=== PATIENT | female | born 1980 | race Caucasian/White ===

== ENCOUNTER → 2020-05-11 12:50 | Outpatient (CLI) | payer OTHER, SELFPAY ==
--- NOTE | ~2020-05-11 | CT_ITS ---
EXAMINATION: CT brain wo con EXAM DATE: 05/11/2020 13:03 INDICATION: Headaches, blurred vision. Tremors. TECHNIQUE: Spiral CT of the head was performed without contrast. Axial, coronal and sagittal images were reviewed. The dose-length product (DLP) for this examination was 524.62 mGy-cm. The exposure w as tailored according to patient size, and iterative reconstruction (ASIR) was used as additional dos e reduction technique. There is no prior study for comparison. FINDINGS: There is no acute intraparenchymal hemorrhage. No evidence of intraparenchymal brain mass lesion. No evidence of acute infarction. There is no mass effect or midline shift. The ventricles are normal in size. There are no extra-axial collections. There are no acute calvarial fractures. T he orbits are unremarkable. Soft tissue is unremarkable. The visualized sinuses and mastoid air [place] ls are well aerated. IMPRESSION: 1. Normal head CT examination. Reviewed, dictated and finalized at location A. ATIONS PROFESSIONAL
== END ==
PROVIDERS: PCP Physician Assistant; Visit Provider Physician Assistant
DX: R51.9 Headache, unspecified (principal); H53.9 Unspecified visual disturbance
CPT/HCPCS: 70450

== ENCOUNTER → 2021-01-23 08:46 | Outpatient (CLI) | payer OTHER, SELFPAY ==
--- NOTE | ~2021-01-23 | MMUS_ITS ---
EXAMINATION: MM diagnostic [place] BI w srikanth, US breast RT limited HISTORY: Bilateral breast tenderness palpable lump in the upper outer quadrant of the right breast TECHNIQUE: Craniocaudal, mediolateral, and mediolateral oblique 3-D tomosynthesis images of the breas ts were performed and synthetic 2-D images were generated. CAD analysis was submitted and interpreted . High resolution limited right breast ultrasound was performed. COMPARISON: None, baseline BREAST PARENCHYMAL COMPOSITION: There are scattered areas of fibroglandular density. FINDINGS: MAMMOGRAPHIC FINDINGS: There is no evidence of suspicious mass, calcification, or architectural distortion in either breast to suggest malignancy. No mammographic correlate is identified for the reported palpable abnormality of concern of the right breast. ULTRASOUND: There is no evidence of focal abnormal solid or cystic mass in the vicinity of the reported palpable abnormality of concern in the right breast. IMPRESSION: 1. No specific mammographic or sonographic correlate is identified for the reported palpable abnormal ity of concern. Further evaluation at this time should be based on clinical assessment. Continued fol low-up physical examination is recommended. 2. Recommend routine screening mammography in one year. BI-RADS Category 1: Negative Reviewed, dictated and finalized at location A. IMPRESSION: 1. No specific mammographic or sonographic correlate is identified for the repo rted palpable abnormality of concern. Further evaluation at this time should be based on clinical assessment. Continued follow-up physical examination is mary ann mmended. 2. Recommend routine screening mammography in one year. BI-RADS Category 1: Negative
== END ==
PROVIDERS: PCP Physician Assistant; Visit Provider Obstetrics & Gynecology
DX: N63.11 Unspecified lump in the right breast, upper outer quadrant (principal)
CPT/HCPCS: 76642; 77062; 77066; G0279

== ENCOUNTER 2021-03-01 17:45 | Emergency (ER) | payer OTHER, SELFPAY ==
[2021-03-01 18:00] VITALS: BP 145/90; PULSE 104; RESP 18; TEMP 37.4; O2SAT 99
--- NOTE | 2021-03-01 18:20 | ED.URI ---
HPI - URI/Sore Throat General Chief Complaint: Upper Respiratory Infection Stated Complaint: Fever,Headache,Sore Throat Time Seen by Provider: 03/01/21 18:20 Source: patient Mode of arrival: ambulatory Limitations: no limitations History of Present Illness HPI Narrative: Deena Martinez is a 40 yo female with a PMH of obesity, anxiety, who comes to [facility] for fever 100.4 and was sent home from [facility]. She is vaccinated back in June and must have both a negative Covid test as well as potentially an alternate diagnosis to be able to come back to work. She has a headache and congestion addition to the fever, chills Related Data Allergies Allergy/AdvReac Type Severity Reaction Status Date / Time No Known Drug Allergies Allergy Unknown Unknown Verified 01/11/21 14:39 Review of Systems Review of Systems: CONSTITUTIONAL: Has fever, chills, sweats. Has headache, EYES: Denies visual changes, redness, discharge. ENT: Denies rhinorrhea, has congestion, sore throat, otalgia. CARDIOVASCULAR: Denies chest pain, palpitations, edema. RESPIRATORY: Denies dyspnea, wheezing, cough GASTROINTESTINAL: Denies abdominal pain, nausea, vomiting, diarrhea. GENITOURINARY: Denies dysuria, hematuria, abnormal discharge SKIN: Denies rash or itching. NEUROLOGIC: Denies numbness, or focal weakness. PSYCHIATRIC: Denies anxiety or depression. PMFSH Past Medical History Medical History (Updated 03/01/21 @ 18:44 by Shama Penn CNP) Chronic low back pain Depression Insomnia Obese Social History Social History Smoking packs per day: 2 Smoking cigarettes per day: 40.0 Years smoked: 10 Smoking pack-years: 20.00 Tobacco type: cigarettes Second hand tobacco smoke exposure: Yes Smoking end date: 08/19/11 Alcohol intake: current Alcohol use details: seldom; socially Substance use: never Substance use type: does not use Comments At time of signature, I agree with nursing past medical, surgical, social and family history. There is no relevant family history pertinent to the presenting complaint. Exam Narrative: GENERAL: This is a well-nourished, well-developed patient, in mild distress. HEAD: normocephalic, atraumatic. EYES: Sclera clear/white. Vision is grossly intact. EARS: External ears normal, Hearing grossly intact. NOSE: External nose normal with nasal discharge, nares without redness, no rhinorrhea. THROAT: Mucous membranes moist, posterior pharynx mild erythema NECK: Neck supple, non-tender CARDIOVASCULAR: Tachycardic rate and rhythm without murmurs, gallops, or rubs. RESPIRATORY: Clear to auscultation. Breath sounds equal bilaterally. No wheezes, rales, or rhonchi. GASTROINTESTINAL: Abdomen soft, non-tender, SKIN: warm, intact with no suspicious lesions or rash, good texture and turgor. NEURO: awake, alert, and oriented to person, place and time. There were no obvious focal neurologic abnormalities. Steady gait EXTREMITIES: Normal range of motion. BACK: Nontender without deformity Course Course Emergency Course: Nursing medicine comes to [facility] for evaluation of upper respiratory symptoms and fever Strep test-negative Flu test- negative Covid PCR's sent as patient has only had symptoms for 24 hours, developed fever work today Treated with Zyrtec or Claritin D, prednisone and Tessaln if needed, ibuprofen and Tylenol for pain/fevrer, If develop cough, monitor O2 levels Vital Signs Vital signs: Vital Signs Temperature 99.4 F 03/01/21 18:00 Pulse Rate 104 H 03/01/21 18:00 Respiratory Rate 18 03/01/21 18:00 Blood Pressure 145/90 H 03/01/21 18:00 Pulse Oximetry 99 03/01/21 18:00 Temperature 99.4 F 03/01/21 18:00 Pulse Rate 104 H 03/01/21 18:00 Respiratory Rate 18 03/01/21 18:00 Blood Pressure 145/90 H 03/01/21 18:00 Pulse Oximetry 99 03/01/21 18:00 MDM - URI/Sore Throat Differential Diagnosis D
[2021-03-02 18:03] LABS: SARS-CoV-2 RNA PCR Positive
== END 2021-03-01 18:53 | disposition home or self-care (01) ==
PROVIDERS: Emergency Provider Nurse Practitioner; PCP Physician Assistant
DX: U07.1 COVID-19 (principal); F17.210 Nicotine dependence, cigarettes, uncomplicated; E66.9 Obesity, unspecified
CPT/HCPCS: 87081; 87804; 87880; 99213; C9803; G0463; U0003; U0005

== ENCOUNTER 2021-03-09 19:55 | Emergency (ER) | payer OTHER, SELFPAY ==
[2021-03-09 20:23] VITALS: BP 148/83; PULSE 85; RESP 18; TEMP 36.3; O2SAT 99
[2021-03-09 20:47] LABS: Basophils Percent Auto 0.2 % (0.2-1.2); Eosinophils Absolute Auto 0.1 K/mm3 (0-0.3); Eosinophils Percent Auto 0.9 % (0-4.4); Hematocrit 42.3 % (37.0-47.0); Hemoglobin 14.4 g/dL (12.0-15.0); Immature Granulocyte Absolute 0.09 K/mm3 (0.00-0.031); Immature Granulocyte Percent A 0.9 % (0-0.5); Lymphocytes Absolute Auto 1.67 K/mm3 (0.9-3.2); Lymphocytes Percent Auto 16.6 % (18.3-44.2); Mean Corpuscular Hemoglobin 30.3 pg (26-34); Mean Corpuscular Volume 88.9 fl (80-100); Mean Platelet Volume 8.9 fl (7.4-10.4); Monocytes Absolute Auto 0.7 K/mm3 (0.1-0.6); Monocytes Percent Auto 6.8 % (2.6-8.5); Neutrophils Absolute Auto 7.5 K/mm3 (1.3-6.7); Neutrophils Percent Auto 74.6 % (45.5-73.1); Platelet Count Result 271 k/mm3 (150-375); Red Blood Count 4.76 M/mm3 (4.2-5.4); Red Cell Distribution Width 11.8 % (11.5-14.5); White Blood Count 10.1 K/mm3 (4.5-10.0)
[2021-03-09 20:54] LABS: Add Urine Microscopic? YES; Appearance Urine Clear (Clear); Bacteria Urine Trace /hpf; Bilirubin Urine Negative (Negative); Blood Urine Negative (Negative); Color Urine Yellow (Yellow); Glucose Urine UA Negative (Negative); Ketones Urine Negative (Negative); Leukocyte Esterase Ur 2+ LEU/UL (Negative); Nitrate Urine Negative (Negative); Protein Urine Negative (Negative); Squamous Epithelial Cell Urine Occasional /hpf (Few); Urobilinogen Urine Negative mg/dL (<2.0)
[2021-03-09 21:33] LABS: Alanine Aminotransferase 69 U/L (4-35); Albumin Level 4.6 g/dL (3.5-5.1); Alkaline Phosphatase 86 U/L (38-126); Anion Gap 13 mmol/L (8-16); Aspartate Amino Transferase 33 U/L (14-36); Bilirubin,Total 0.4 mg/dL (0.2-1.3); Blood Urea Nitrogen 7 mg/dL (7-17); Calcium 9.7 mg/dL (8.4-10.2); Carbon Dioxide 24 mmol/L (22-30); Chloride 107 mmol/L (98-107); Estimated CRCL calculation 105 ml/min; Estimated Glomerular Filt Rate > 60; Glucose 104 mg/dL (65-110); Lipase 218 U/L (23-300); Potassium 4.1 mmol/L (3.4-5.0); Sodium 144 mmol/L (137-145)
--- NOTE | 2021-03-09 22:39 | ED.GENADULT ---
HPI - General Adult General Chief complaint: Nausea/Vomiting/Diarrhea Stated complaint: Unable to keep anything down, covid + Time Seen by Provider: 03/09/21 20:48 Source: patient History of Present Illness HPI narrative: 41-year-old female diagnosed with Covid 8 days ago complaining of 1 day history of nausea vomiting and diarrhea unable to keep anything down. Abdominal pain with vomiting only. No fever, no cough no shortness of breath. Patient last vomited prior to arrival. No hematemesis no dark tarry stool, no flank pain, no dysuria, no lower abdominal pain denies STD risk factors. Vomiting worse with eating, improves with not eating. The patient has remained nauseous. She used Zofran without relief. Severity: severe Related Data Allergies Allergy/AdvReac Type Severity Reaction Status Date / Time No Known Drug Allergies Allergy Unknown Unknown Verified 03/09/21 20:28 Review of Systems Review of Systems: CONSTITUTIONAL: Denies fever, chills, or sweats. EYES: Denies visual changes, redness, or discharge. ENT: positive for congestion, no sore throat, or otalgia. CARDIOVASCULAR: Denies chest pain, palpitations, or edema. RESPIRATORY: Denies cough or dyspnea. GASTROINTESTINAL: Denies abdominal pain, does state she has nausea, vomiting,diarrhea. GENITOURINARY: Denies dysuria or hematuria. SKIN: Denies rash or itching. MUSCULOSKELETAL: Denies back pain, joint pain, or myalgia. NEUROLOGIC: Denies headache, numbness, or weakness. PSYCHIATRIC: Denies anxiety or depression. [facility] Past Medical History Medical History (Updated 03/11/21 @ 00:01 by Manjeet Aguayo) Chronic low back pain Depression Insomnia Obese Social History Social History Smoking packs per day: 2 Smoking cigarettes per day: 40.0 Years smoked: 10 Smoking pack-years: 20.00 Tobacco type: cigarettes Second hand tobacco smoke exposure: Yes Smoking end date: 08/19/11 Alcohol intake: current Alcohol use details: seldom; socially Substance use: never Substance use type: does not use Exam Narrative: General: alert, afebrile, answering all questions Head: normocephalic, atraumatic ENT: moist mucous membranes, oropharynx patent, no rhinorrhea Neck: supple, trachea midline, no JVD Chest: equal chest rise bilaterally, no chest wall trauma Lungs: clear to auscultation bilaterally, respirations unlabored CV: regular rate, no JANET B, calf size equal bilaterally Abd: soft, mild epigastric tend to palpation, no rebound, no gaurding, negative Nunez's : no CVA tenderness B, bladder non-distended EXT: no deformity noted, moving all extremities equally Neuro: alert, oriented x 3; CN 2-12 grossly intact, no gross focal deficits Psych: affect appropriate, though content normal Course Vital Signs Vital signs: Vital Signs Temperature 36.3 C L 03/09/21 20:23 Pulse Rate 85 03/09/21 20:23 Respiratory Rate 18 03/09/21 20:23 Blood Pressure 148/83 H 03/09/21 20:23 Pulse Oximetry 99 03/09/21 20:23 Temperature 36.3 C L 03/09/21 20:23 Pulse Rate 80 03/10/21 00:20 Respiratory Rate 14 03/10/21 00:20 Blood Pressure 138/78 03/10/21 00:20 Pulse Oximetry 98 03/10/21 00:20 Medical Decision Making Vital Signs Vital Signs: Vital Signs Temperature 36.3 C L 03/09/21 20:23 Pulse Rate 85 03/09/21 20:23 Respiratory Rate 18 03/09/21 20:23 Blood Pressure 148/83 H 03/09/21 20:23 Pulse Oximetry 99 03/09/21 20:23 Temperature 36.3 C L 03/09/21 20:23 Pulse Rate 80 03/10/21 00:20 Respiratory Rate 14 03/10/21 00:20 Blood Pressure 138/78 03/10/21 00:20 Pulse Oximetry 98 03/10/21 00:20 Lab Data Result diagrams: 03/09/21 20:37 03/09/21 20:37 Labs: Lab Results 03/09/21 03/09/21 03/09/21 Range/Units 20:37 20:37 20:43 WBC 10.1 H (4.5-10.0) K/mm3 RBC 4.76 (4.2-5.4) M/mm3 Hgb 14.4 (12.0-1
[2021-03-09 22:55] VITALS: BP 140/80; PULSE 84; RESP 18; O2SAT 100
[2021-03-09] MEDS: PROMETHAZINE HCL 25 MG/ML AMPUL 12.5 MG IV PUSH (22:55)
[2021-03-09] MEDS: SODIUM CHLORIDE 0.9% IV 1,000 ML 999 ML IV CONT (22:55)
[2021-03-09] MEDS: diphenhydrAMINE HCl INJ 50 MG/ML VIAL 25 MG IV PUSH (22:55)
[2021-03-10 00:20] VITALS: BP 138/78; PULSE 80; RESP 14; O2SAT 98
== END 2021-03-10 00:20 | disposition home or self-care (01) ==
PROVIDERS: Emergency Medicine; Emergency Provider Emergency Medicine; PCP Physician Assistant
DX: U07.1 COVID-19 (principal); R11.2 Nausea with vomiting, unspecified; F32.A Depression, unspecified; E66.9 Obesity, unspecified; Z68.30 Body mass index [BMI] 30.0-30.9, adult; F17.210 Nicotine dependence, cigarettes, uncomplicated
CPT/HCPCS: 36415; 80053; 81001; 81025; 83690; 85025; 87086; 87088; 96361; 96374; 96375; 99284; J1200; J2550; J7030

== ENCOUNTER 2022-04-08 09:08 | Outpatient (CLI) | payer OTHER, SELFPAY ==
--- NOTE | ~2022-04-08 | MM_ITS ---
EXAMINATION: MM screening [place] [facility] w srikanth HISTORY: Screening TECHNIQUE: Craniocaudal and mediolateral oblique 3-D tomosynthesis images were obtained and synthetic 2-D images were generated. CAD analysis was submitted and interpreted. COMPARISON: 01/23/2021 BREAST PARENCHYMAL COMPOSITION: There are scattered areas of fibroglandular density. FINDINGS: There is no evidence of suspicious mass, calcification, or architectural distortion to sugg est malignancy in either breast. There has been no suspicious interval change. IMPRESSION: 1. No mammographic evidence of malignancy. 2. Recommend routine screening mammography in one year. BI-RADS Category 1: Negative Reviewed, dictated and finalized at location A.
== END 2022-04-08 09:09 | disposition home or self-care (01) ==
LOC: ANHIMG 09:09
PROVIDERS: PCP Family Medicine; Visit Provider Obstetrics & Gynecology
DX: Z12.31 Encounter for screening mammogram for malignant neoplasm of breast (principal)
CPT/HCPCS: 77063; 77067

== ENCOUNTER → 2022-07-30 12:25 | Outpatient (CLI) | payer OTHER, SELFPAY ==
--- NOTE | ~2022-07-30 | XR_ITS ---
Left Shoulder Technique: AP and axillary views were obtained. Clinical History: Pain Findings: No fracture or dislocation is seen. Osseous alignment is anatomic. The glenohumeral and acr omioclavicular joint spaces are preserved. Soft tissues are unremarkable. Impression: Unremarkable left shoulder radiographs. Reviewed, dictated and finalized at [facility]. ARCH DIETITIAN Impression: Unremarkable left shoulder radiographs.
== END ==
PROVIDERS: PCP Physician Assistant; Visit Provider Physician Assistant
DX: M25.512 Pain in left shoulder (principal)
CPT/HCPCS: 73030

== ENCOUNTER 2023-12-08 08:31 | Outpatient (CLI) | payer OTHER, SELFPAY ==
--- NOTE | 2023-12-29 20:27 | WPDSLEEPSTUD ---
Sleep Study Date of Study: 12/08/23 Ordering Provider: Mei Soriano MD Interpreting Physician: Meenakshi Graves DO Sleep Study Type: CPAP Titration Height: 1.6 m Weight: 88.451 kg Body Mass Index: 34.5 Neck Circumference (inches): 16 [place]: 8 Reason for Sleep Study Difficulty falling and staying asleep despite PAP Therapy Sleep History The patient is a 43-year-old female that had a Pap titration study ordered by her business performance manager for difficulty falling and maintaining sleep. Sleep the patient rarely awakens from sleep short of breath. She occasionally awakens at night with heartburn, belching or cough. She constantly snores loudly enough that others complain. She occasionally has trouble sleeping when she has a cold. She occasionally wakes up gasping for air throughout the night. She constantly has breathing problems at night observed by herself or others. She rarely sweats excessively at night. She denies having heart palpitations or irregular heartbeats during the night. She occasionally falls asleep during the day but rarely while driving. She denies sleep paralysis, cataplexy and hypnagogic / hypnopompic hallucinations. She rarely has trouble at school or work due to sleepiness. She denies feeling afraid of going to sleep. She denies having nightmares. She denies remembering her dreams. She occasionally has thoughts racing through her mind. She occasionally feels sad or depressed. She rarely has anxiety. She occasionally has muscular tension. She rarely notices parts of her body jerk. She rarely kicks during the night. She rarely has crawling and aching feelings in her legs and rarely has leg pain during the night. She denies grinding her teeth during sleep and denies awakening with morning jaw pain. She is frequently bothered by pain during the day and occasionally awakened by pain during the night. She frequently wakes up feeling stiff in the morning. She frequently wakes up with sore or achy muscles. She frequently wakes up with pain in the neck, spine in other joints. She goes to bed between 10:30 p.m. to 12:30 a.m. on both weekdays and weekends. It takes her a minimum of 20 minutes to fall asleep and a can take up to several hours. She wakes up 3-5 times throughout the night to adjust her physician and the amount of time it takes for her to fall back asleep is variable. She wakes up between 4:15-6 a.m. on weekdays and between 7-9 a.m. on the weekends. She typically gets 4-6 hours of sleep per night. She does not stay in bed after waking up in the morning. She currently lives with her and 2 sons. She denies consuming any caffeinated beverages within 2 hours of bedtime. She denies engaging in physical exercise before bedtime. She will read and watch television before falling asleep. She denies taking naps in the afternoon or the evening. She denies consuming caffeinated beverages throughout the day. She is a former smoker and quit in 2011. She consumes alcohol socially. She denies recreational drug use. [facility] Past Medical History Medical History Chronic low back pain Depression Insomnia Obese Obstructive sleep apnea Family History Family History Mother Diabetes mellitus Hypertension Hyperlipidemia Father Hyperlipidemia Hypertension Grandparent Hyperlipidemia Hypertension Grandparent Multiple sclerosis Grandparent COPD (chronic obstructive pulmonary disease) Grandparent Hypertension Son Autism spectrum disorder ADHD Social History Social History Smoking packs per day: 2 Smoking cigarettes per day: 40.0 Years smoked: 10 Smoking pack-years: 20.00 Smoking status: Former smoker Tobacco type: cigarettes Second hand tobacco smoke exposure: Yes Smoking end date: 11/29/11 [place]
[2023-12-29 20:28] VITALS: BMI 34.5
== END 2023-12-09 07:30 | disposition home or self-care (01) ==
LOC: ANHCSM 08:33
PROVIDERS: PCP Family Medicine; Visit Provider Internal Medicine Critical Care Medicine
DX: G47.33 Obstructive sleep apnea (adult) (pediatric) (principal)
CPT/HCPCS: 95811

== ENCOUNTER 2024-01-05 08:19 | Outpatient (CLI) | payer OTHER, SELFPAY ==
--- NOTE | ~2024-01-05 | MM_ITS ---
EXAMINATION: MM screening [place] [facility] w srikanth HISTORY: Screening TECHNIQUE: Craniocaudal and mediolateral oblique 3-D tomosynthesis images were obtained and synthetic 2-D images were generated. CAD analysis was submitted and interpreted. COMPARISON: Comparison to multiple prior studies sequentially, with oldest reviewed study dated 01/23. BREAST PARENCHYMAL COMPOSITION: Not dense: There are scattered areas of fibroglandular density. FINDINGS: There is a new focal asymmetry in the subareolar location of the right breast on CC view. T he left breast is stable without evidence for malignancy. IMPRESSION: 1. New right breast asymmetry. 2. Additional mammographic views and possible breast ultrasound are recommended. BI-RADS Category 0: Incomplete: Needs additional imaging evaluation. Reviewed, dictated and finalized at location B. IMPRESSION: 1. New right breast asymmetry. 2. Additional mammographic views and possible breast ultrasound are recommended . BI-RADS Category 0: Incomplete: Needs additional imaging evaluation.
== END 2024-01-05 08:20 | disposition home or self-care (01) ==
LOC: CHSIMG 08:21
PROVIDERS: PCP Family Medicine; Visit Provider Obstetrics & Gynecology
DX: Z12.31 Encounter for screening mammogram for malignant neoplasm of breast (principal); R92.8 Other abnormal and inconclusive findings on diagnostic imaging of breast
CPT/HCPCS: 77063; 77067